=== PATIENT | female | born 1940 | race Caucasian/White ===

== ENCOUNTER 2023-07-23 15:21 | Inpatient (IN) | payer MEDICARE, BC ==
[~2023-07-23] VITALS: Ht 167.6 cm; Wt 60.0 kg
[2023-07-23 18:17] LABS: BASOPHILS % 0.5 % (0.0-2.0); EOSINOPHILS % 2.5 % (0.0-5.0); HEMATOCRIT. 40.1 % (36.0-48.0); HEMOGLOBIN. 13.2 g/dL (12.0-16.0); LYMPHOCYTES % 26.8 % (20.0-50.0); MEAN CORPUSCULAR HEMOGLOBIN 32.1 pg (28.0-32.0); MEAN CORPUSCULAR HGB CONC 32.8 g/dL (31.0-37.0); MEAN CORPUSCULAR VOLUME 97.8 fL (81.0-99.0); MEAN PLATELET VOLUME 9.2 fl (7.4-10.4); MONOCYTES % 6.6 % (2.0-8.0); NEUTROPHILS % 63.6 % (40.0-76.0); PLATELET 124 x1000/uL (130-400); RED CELL DISTRIBUTION WIDTH 13.8 % (11.6-14.6); WHITE BLOOD COUNT 5.9 x1000/uL (4.5-11.0)
[2023-07-23 18:22] LABS: CHLORIDE 107 mEq/L (98-107); POTASSIUM 4.7 mEq/L (3.5-5.1); SODIUM 140 mEq/L (136-145)
[2023-07-23 18:23] LABS: CARBON DIOXIDE 27 mEq/L (21-32)
[2023-07-23 18:24] LABS: CALCIUM 9.3 mg/dL (8.7-10.4)
[2023-07-23 18:28] LABS: CREATININE 0.8 mg/dL (0.6-1.0); GLUCOSE 87 mg/dL (70-105); UREA NITROGEN BLOOD 9 mg/dL (9-23)
[2023-07-23 18:29] LABS: TROPONIN I HIGH SENSITIVITY < 4 ng/L (3.0-34)
[2023-07-23 19:51] LABS: INR 0.9; PROTHROMBIN TIME 10.2 sec (9.6-11.0)
[2023-07-24 04:00] VITALS: BP 154/41; PULSE 62; RESP 20; TEMP 97.5
[2023-07-24 08:00] VITALS: BP 98/86; PULSE 86; RESP 18; TEMP 97.6
[2023-07-24] MEDS ORDERED: SODIUM CHLORIDE 0.9% 1,000 ML IV SCH (09:45)
[2023-07-24] MEDS ORDERED: LOSA100T33 PO (10:51)
[2023-07-24] MEDS ORDERED: SERT-112 PO (11:24)
[2023-07-24] MEDS ORDERED: LEVO100T9 PO (11:24)
[2023-07-24] MEDS ORDERED: CRES10 PO (11:24)
[2023-07-24] MEDS ORDERED: HYDROCORTISONE 2.5% CREAM 20GM TOP PRN (11:30)
[2023-07-24] MEDS ORDERED: DOCUSATE SODIUM 100MG CAPSULE PO PRN (11:30)
[2023-07-24] MEDS ORDERED: KETOCONAZOLE 2% CREAM 15GM TOP PRN (11:30)
[2023-07-24 12:00] VITALS: BP 110/79; PULSE 86; RESP 20; TEMP 97.4
[2023-07-24] MEDS: SODIUM CHLORIDE 0.45% 1,000 ML IV SCH (13:00)
[2023-07-24] MEDS ORDERED: NYSTATIN POWDER 15GM TOP PRN (13:00)
[2023-07-24] MEDS: AMOXICILLIN/POTASSIUM CLAVULANATE 500/125MG TAB PO SCH (13:11)
[2023-07-24] MEDS: ASPIRIN 81MG TABLET PO SCH (13:11)
[2023-07-24 14:13] LABS: CREATINE KINASE 48 IU/L (34-145)
[2023-07-24 14:14] LABS: CREATINE KINASE MB FRACTION 0.7 ng/mL (0.5-3.6)
[2023-07-24 14:15] LABS: TROPONIN I HIGH SENSITIVITY 5 ng/L (3.0-34)
[2023-07-24 14:19] LABS: T4 FREE 1.24 ng/dL (0.89-1.76); THYROID STIMULATING HORMONE 5.68 uIU/mL (0.55-4.78)
[2023-07-24 20:00] VITALS: BP 112/49; PULSE 53; RESP 18; TEMP 97.6
[2023-07-25] VITALS: BP 151/49; PULSE 52; RESP 19; TEMP 97.9
[2023-07-25 04:00] VITALS: BP 121/70; PULSE 49; RESP 21; TEMP 98.1
[2023-07-25 06:18] LABS: CREATINE KINASE MB FRACTION 1.1 ng/mL (0.5-3.6)
[2023-07-25 06:26] LABS: CREATINE KINASE 47 IU/L (34-145)
[2023-07-25 06:34] LABS: TROPONIN I HIGH SENSITIVITY < 4 ng/L (3.0-34)
[2023-07-25 08:00] VITALS: BP 137/59; PULSE 58; RESP 18; TEMP 96.8
[2023-07-25 11:49] VITALS: BP 101/56; PULSE 58; RESP 18; TEMP 97
[2023-07-25 16:02] VITALS: BP 124/46; PULSE 55; RESP 18; TEMP 97.4
[2023-07-25] MEDS: LEVOTHYROXINE SODIUM 100MCG TABLET PO SCH (16:49)
[2023-07-25 20:00] VITALS: BP 148/47; PULSE 71; RESP 18; TEMP 97.1
[2023-07-26 00:45] VITALS: BP 142/67; PULSE 67; RESP 19; TEMP 97.8
[2023-07-26 04:00] VITALS: PULSE 59; RESP 16; TEMP 97.1
[2023-07-26 08:00] VITALS: BP 127/65; PULSE 58; RESP 18; TEMP 97.5
[2023-07-26 08:15] VITALS: BP 113/53; PULSE 62; TEMP 97.4; O2SAT 96
[2023-07-26 09:44] LABS: BASOPHILS % 0.3 % (0.0-2.0); EOSINOPHILS % 2.4 % (0.0-5.0); HEMOGLOBIN. 13.3 g/dL (12.0-16.0); LYMPHOCYTES % 19.7 % (20.0-50.0); MEAN CORPUSCULAR HEMOGLOBIN 32.4 pg (28.0-32.0); MEAN CORPUSCULAR HGB CONC 33.2 g/dL (31.0-37.0); MEAN CORPUSCULAR VOLUME 97.7 fL (81.0-99.0); MEAN PLATELET VOLUME 9.1 fl (7.4-10.4); MONOCYTES % 6.9 % (2.0-8.0); NEUTROPHILS % 70.7 % (40.0-76.0); PLATELET 158 x1000/uL (130-400); RED BLOOD CELL COUNT 4.09 mill/uL (4.2-5.4)
[2023-07-26 09:48] LABS: CHLORIDE 108 mEq/L (98-107); POTASSIUM 3.8 mEq/L (3.5-5.1); SODIUM 139 mEq/L (136-145)
[2023-07-26 09:49] LABS: CALCIUM 9.3 mg/dL (8.7-10.4); CARBON DIOXIDE 24 mEq/L (21-32)
[2023-07-26 09:54] LABS: CREATININE 0.8 mg/dL (0.6-1.0); GLUCOSE 109 mg/dL (70-105); UREA NITROGEN BLOOD 11 mg/dL (9-23)
[2023-07-26 12:00] VITALS: BP 113/53; PULSE 62; RESP 20; TEMP 97.4
== END 2023-07-26 14:45 | disposition home or self-care (01) | DRG 73 ==
LOC: ER 15:21 → 5WST 19:55 → EDBEDREQ 19:58 → 7WST 07-24 06:16
PROVIDERS: ADMIT Internal Medicine; ATTEND Internal Medicine
DX: G90.8 Other disorders of autonomic nervous system (principal); G93.41 Metabolic encephalopathy; N39.0 Urinary tract infection, site not specified; E46 Unspecified protein-calorie malnutrition; E86.0 Dehydration; I10 Essential (primary) hypertension; E78.00 Pure hypercholesterolemia, unspecified; E03.9 Hypothyroidism, unspecified; R00.1 Bradycardia, unspecified; D64.9 Anemia, unspecified; Z79.899 Other long term (current) drug therapy; Z68.21 Body mass index [BMI] 21.0-21.9, adult
CPT/HCPCS: 36415; 71045; 80048; 80061; 82550; 82553; 83036; 83880; 84439; 84443; 84484; 85025; 85379; 93005; 93306; 93970; 99285; A6261